=== PATIENT | male | born 1970 | race Caucasian/White ===

== ENCOUNTER 2024-05-20 11:14 | Outpatient (OUT) | payer OTHER, SELFPAY ==
[2024-05-20 11:32] LABS: Basophils Absolute Auto 0.1 10^3/uL (0.0-0.1); Basophils Percent Auto 1.3 % (0.2-2.0); Eosinophils Absolute Auto 0.2 10^3/uL (0.0-0.7); Eosinophils Percent Auto 2.1 % (0.9-7.0); Hematocrit 44.8 % (42.0-54.0); Immature Granulocytes Abs Auto 0.08 10^3/uL (0.00-0.03); Immature Granulocytes Pct Auto 0.7 % (0.0-0.5); Lymphocytes Absolute Auto 2.3 10^3/uL (1.2-3.8); Lymphocytes Percent Auto 20.9 % (20.5-60.0); Mean Corpuscular HGB Conc 33.5 g/dL (29.9-35.2); Mean Corpuscular Hemoglobin 31.4 pg (25.9-34.0); Mean Corpuscular Volume 93.9 fL (80.0-94.0); Mean Platelet Volume 8.8 fL (9.5-13.5); Monocytes Absolute Auto 0.9 10^3/uL (0.3-0.8); Monocytes Percent Auto 8.3 % (1.7-12.0); Neutrophils Absolute Auto 7.4 10^3/uL (1.4-6.5); Neutrophils Percent Auto 66.7 % (43.0-75.0); Platelet Count 387 10^3/uL (150-450); Red Blood Count 4.77 10^6/uL (4.70-6.10); Red Cell Distribution Width 13.3 % (11.0-15.0); White Blood Count 11.1 10^3/uL (4.0-11.0)
[2024-05-20 12:07] LABS: Alanine Aminotransferase 23 U/L (16-63); Albumin Globulin Ratio 0.9; Albumin Level 3.4 g/dL (3.4-5.0); Alkaline Phosphatase 66 U/L (46-116); Anion Gap 13.8; Aspartate Amino Transferase 18 U/L (15-37); BUN Creatinine Ratio 8.2; Bilirubin Total 0.3 mg/dL (0.2-1.0); Calcium 8.8 mg/dL (8.5-10.1); Carbon Dioxide 27.2 mmol/L (21.0-32.0); Chloride 105 mmol/L (98-107); Chol HDL Ratio 7.1; Cholesterol 219 mg/dL (<=200); Estimated GFR (African America >60 (>=60 mL/min/1.73m^2); Estimated GFR (Non-African Ame >60 (>=60 mL/min/1.73m^2); Glucose 113 mg/dL (74-106); HDL Cholesterol 31 mg/dL (40-60); Sodium 142 mmol/L (136-145); Total Protein 7.4 g/dL (6.4-8.2); Triglycerides 291 mg/dL (<=150); VLDL CHOLESTEROL 58.2 mg/dL
== END 2024-05-20 11:15 | disposition home or self-care (01) ==
LOC: LAB 11:19
PROVIDERS: PCP Nurse Practitioner; Visit Provider Nurse Practitioner
DX: I10 Essential (primary) hypertension (principal); Z13.6 Encounter for screening for cardiovascular disorders
CPT/HCPCS: 36415; 80053; 80061; 85025

== ENCOUNTER 2025-01-08 08:38 | Outpatient (OUT) | payer OTHER, SELFPAY ==
--- OUTSIDE RECORDS SUMMARY | 2024-08-25 04:45 | XMS_ITS ---
Author Organization Formerly [facility], [facility] vices Address [address] [place], [place] [id number] Care Team Providers Care Customer Engagement Specialist Name Role Phone Chel Hauser Primary Care Provider Oliva Call Unavailable [phone] REASON FOR VISIT HTN, Anxiety Social History Sex Assigned At : Social History Observation Description Sex Assigned At Male Encounters Encounter Location Date Provider Diagnosis Main [address] [place] [id number] 08/25/2024 Oliva Call Plan Of Treatment Next Appt Details Provider Name:Roderick Nance, 01/12/2025 09:45:00 AM, [address] [place], [place], [id number], Progress Notes * Pato SOTELO MDOB:[birth year] (54 yo M)Acc No.[id number]:08/25/2024 Patient: Christie Pato CUBA Provider: INESSA Sheikh :1970 A ge:53 Y S ex:Male Date:08/25/2024 Address:[address] [place], [place] [id number] Pcp:Chel Hauser Subjective: * Chief Complaints: * 1 . HTN, Anxiety. * Medical History: Objective: * Vitals: Assessment: Plan: * Treatment: * Billing Information: * Visit Code: * Procedure Codes: * Electronic signature of INESSA Weinberg on 01/08/2025 at 08:40 AM EDT Sign off status: Pending * Provider: INESSA Sheikh Date: 0 08/25/2024 Generated for Jabari slater/Reginald/Juan on: 0 01/08/2025 08:40 AM EDT
--- OUTSIDE RECORDS SUMMARY | 2024-12-09 06:00 | XMS_ITS ---
Author Organization [facility] vices Address [address] [place], [place] [id number] Care Team Providers Care Animal Trainer Name Role Phone Chel Hauser Primary Care Provider Amanda Humphries Unavailable [phone] REASON FOR VISIT Wellness (med refill) Social History Sex Assigned At : Social History Observation Description Sex Assigned At Male Encounters Encounter Location Date Provider Diagnosis [address], [facility] [place] [address] 12/09/2024 Amanda Humphries Plan Of Treatment Next Appt Details Provider Name:Roderick Nance, 01/12/2025 09:45:00 AM, [address], [id number], Progress Notes * Pato SOTELO MDOB:[birth year] (54 yo M)Acc No.[id number]:12/09/2024 Patient: Christie CUBAPato Provider: Faina Humphries MD :1970 A ge:54 Y S ex:Male Date:12/09/2024 Address:[address] [place] [id number] Pcp:Chel Hauser Subjective: * Chief Complaints: * 1 . Wellness (med refill). * Medical History: Objective: * Vitals: Assessment: Plan: * Treatment: * Billing Information: * Visit Code: * Procedure Codes: * Electronic signature of Grant Humphries MD on 01/08/2025 at 08:40 AM EDT Sign off status: Pending * Provider: Faina Humphries MD Date: 0 12/09/2024 Generated for Jabari slater/Reginald/Juan on: 0 01/08/2025 08:40 AM EDT
--- OUTSIDE RECORDS SUMMARY | 2025-01-08 08:40 | XMS_ITS | Clinical Summary ---
Author Organization [facility] Address [address] [place] [address] Care Team Providers Care Truck Engine Technician Name Role Phone Unavailable Primary Care Provider Unavailabl e Social History Tobacco Use Types Packs/Day Years Used Date Smoking Tobacco: Never Assessed Sex and Gender Information Value Date Recorded Sex Assigned at Not on file Legal Sex Male 7:01 PM EDT Gender Identity Not on file Sexual Orientation Not on file Last Filed Vital Signs Vital Sign Reading Time Taken Comments Blood Pressure 150/100 02/10/2019 12:00 PM EDT Pulse - - Temperature - - Respiratory Rate - - Oxygen Saturation - - Inhaled Oxygen Concentration - - Weight 80.9 kg (178 lb 6.4 oz) 02/10/2019 12:00 PM EDT Height 167.6 cm (5' 6 ) 02/10/2019 12:00 PM EDT Body Mass Index 28.79 02/10/2019 12:00 PM EDT Plan of Treatment Not on file
--- OUTSIDE RECORDS SUMMARY | 2025-01-08 08:40 | XMS_ITS | Patient Health Record ---
Author Organization Formerly [facility] vices Address [address] [place], [place] [address] Care Team Providers Care Neon Technician Name Role Phone Chel Hauser Primary Care Provider [phone] Oliva Call Unavailable Roderick Nance Unavailable [phone] Yandel Amanda Unavailable [phone] Allergies No Known Allergies Results Component Value Reference Range Notes LDL-CHOL DIRECT Reviewed date:12/17/2024 09:04:53 AM Interpretation: Performing Lab: Notes/Report: LDL-CHOL, DIRECT 157 <130 mg/dL ADULT LDL CHOLESTEROL CLASSIFICATION <100mg/dL Optimal 100-129mg/dL Near/Abo ve Optimal 130-159mg/dL Borderli ne High >160mg/dL High Risk Desirable range <100 mg/dL for patients with CHD or diabetes and <70 mg/dL for diabetic patients with known heart disease. LIPID PANEL WITH REFLEX TO D IRECT LDL Reviewed date:12/17/2024 09:04:53 AM Interpretation: Performing Lab: Notes/Report: CHOLESTEROL 223 100-199 mg/dL TRIGLYCERIDES 319 20-149 mg/dL VLDL-CHOL, CALCULATED 64 <30 mg/dL HDL-CHOL 26 >=40 mg/dL LDL-CHOL, CALCULATED 133 <130 mg/dL ADULT LDL CHOLESTEROL CLASSIFICATION <100mg/dL Optimal 100-129mg/dL Near/Abo ve Optimal 130-159mg/dL Borderli ne High >160mg/dL High Risk Desirable range <100 mg/dL for patients with CHD or diabetes and <70 mg/dL for diabetic patients with known heart disease. Direct LDL is recommended for patients with triglycerides >400. LDL/HDL 5.1 <5.0 LDL/HDL RATIO MALE FEMALE below average risk <2.3 <2.3 average risk <5.0 <4.1 moderate risk <7.1 <5.6 high risk >7.1 >5.6 CHOL/HDL 8.6 2.0-4.5 COMPREHENSIVE METABOLIC PANE L WITH GFR Reviewed date:12/17/2024 09:04:53 AM Interpretation: Performing Lab: Notes/Report: GLUCOSE 74 65-125 mg/dL BUN 14 6-20 mg/dL CALCIUM 9.5 8.6-10.5 mg/dL CREATININE, BLOOD 0.83 0.67-1.30 mg/dL eGFR (2020 CKD-EPI) 103 >59 mL/min/1.73m2 SODIUM 142 135-148 mmol/L POTASSIUM 4.3 3.5-5.4 mmol/L CHLORIDE 104 96-107 mmol/L CO2 27 18-32 mmol/L ANION GAP 11 7-16 mmol/L T. BILIRUBIN 0.2 <1.3 mg/dL ALK PHOS 77 39-118 U/L AST-SGOT 20 9-50 U/L ALT-SGPT 18 5-41 U/L T. PROTEIN 7.3 6.0-8.3 g/dL ALBUMIN 4.4 3.5-5.2 g/dL PSA, TOTAL, 3RD GENERATION Reviewed date:12/17/2024 09:04:53 AM Interpretation: Performing Lab: Notes/Report: PSA, TOTAL 0.591 0-4.00 ng/mL Method: Oumar Pete ECLIA PSA levels should not be interpreted as absolute evidence of disease, however it is widely accepted as an adjunctive test in the management of prostate cancer patients. Values obtained with different assay methods or kits can not be used interchangeably. A detectable PSA following radical prostatectomy is associated with eventual clinical disease recurrence in some, but not all patients. It may also be due to the presence of benign glands. The AUA defines biochemical recurrence as an initial PSA value >=0.2 ng/ml followed by a subsequent confirmatory PSA value >=0.2 ng/ml. HEMOGLOBIN A1C Reviewed date:12/17/2024 09:04:53 AM Interpretation: Performing Lab: Notes/Report: HEMOGLOBIN A1C 5.6 <5.7 % Prediabetes: 5.7% to 6.4% Diabetes: >6.4% Glycemic control for adults with diabetes: <7.0% Use with caution in patients with abnormal hemoglobin variants as the half-life of red blood cells and in vivo glycation rates are affected. AVERAGE WHOLE BLOOD GLUCOSE 114 <126 mg/dl UNLESS OTHERWISE INDICATED, ALL TESTING PERFORMED AT: [facility] [employer] [address] [place] [address] FRUIT OR NUT FARMWORKER: ZOE TORREZ M.D. CLIA NUMBER [id number] CAP ACCREDITATION AUID [id number] Complete Blood Count Auto Di ff Reviewed date:05/22/2024 04:33:30 PM Interpretation: Performing Lab: Notes/Report: [facility] , White Blood Count 11.1 4.0-11.0 10 3/uL Red Blood Count 4.77 4.70-6.10 10 6/uL Hemoglobin 15.0 14.0-18.0 g/dL Hematocrit 44.8 42.0-54.0 % Mean Corpuscular Volume 93.9 80.0-94.0 fL Mean Corpuscular Hemoglobin 31.4 25.9-34.0 pg Mean Corpuscular HGB Conc 33.5 29.9-35.2 g/dL Red Cell Distribution Width 13.3 11.0-15.0 % Platelet Count 387 150-450 10 3/uL Mean Platelet Volume 8.8 9.5-13.5 fL Neutrophils Percent Auto 66.7 43.0-75.0 % Lymphocytes Percent Auto 20.9 20.5-60.0 % Monocytes Percent Auto 8.3 1.7-12.0 % Eosinophils Percent Auto 2.1 0.9-7.0 % Basophils Percent Auto 1.3 0.2-2.0 % Immature Granulocytes Pct Auto 0.7 0.0-0.5 % Neutrophils Absolute Auto 7.4 1.4-6.5 10 3/uL Lymphocytes Absolute Auto 2.3 1.2-3.8 10 3/uL Monocytes Absolute Auto 0.9 0.3-0.8 10 3/uL Eosinophils Absolute Auto 0.2 0.0-0.7 10 3/uL Basophils Absolute Auto 0.1 0.0-0.1 10 3/uL Immature Granulocytes Abs Auto 0.08 0.00-0.03 10 3/uL Performing Lab: see note ML - [facility] Comprehensive Metabolic Pane l Reviewed date:05/20/2024 01:45:38 PM Interpretation: Performing Lab: Notes/Report: [facility] , Sodium 142 136-145 mmol/L Potassium 4.0 3.5-5.1 mmol/L Chloride 105 98-107 mmol/L Carbon Dioxide 27.2 21.0-32.0 mmol/L Anion Gap 13.8 Glucose 113 74-106 mg/dL Blood Urea Nitrogen 8.0 7.0-18.0 mg/dL Creatinine 0.97 0.70-1.30 mg/dL Estimated GFR ( July >60 >=60 mL/min/1.73m 2 Estimated GFR (Non- Purvi >60 >=60 mL/min/1.73m 2 BUN Creatinine Ratio 8.2 Calcium 8.8 8.5-10.1 mg/dL Bilirubin Total 0.3 0.2-1.0 mg/dL Aspartate Amino Transferase 18 15-37 U/L Alanine Aminotransferase 23 16-63 U/L Alkaline Phosphatase 66 46-116 U/L Total Protein 7.4 6.4-8.2 g/dL Albumin Level 3.4 3.4-5.0 g/dL Globulin 4.0 Albumin Globulin Ratio 0.9 Performing Lab: see note ML - [facility] Lipid Panel Reviewed date:05/20/2024 01:33:11 PM Interpretation: Performing Lab: Notes/Report: [facility] , Triglycerides 291 <=150 mg/dL Cholesterol 219 <=200 mg/dL HDL Cholesterol 31 40-60 mg/dL > or =60 mg/dl - LOW CARDIOVASCULAR RISK <40 mg/dl - HIGH CARDIOVASCULAR RISK LDL Cholesterol Calculated 130.0 <100 mg/dl OPTIMAL 100-129 mg/dl NEAR OR ABOVE OPTIMAL 130-159 mg/dl BORDERLINE HIGH 160-189 mg/dl HIGH >190 mg/dl VERY HIGH VLDL CHOLESTEROL 58.2 Chol HDL Ratio 7.1 3.3 - 4.4 LOW RISK 4.4 - 7.1 AVERAGE RISK 7.1 - 11.0 MODERATE RISK >11.0 HIGH RISK Performing Lab: see note ML - [facility] Reason For Referral No Information Medications Medication SIG (Take, Route, Frequency, Duration) Notes Start Date End Date Status Rosuvastatin Calcium 5 MG 1 tablet Orall y Once a day for 30 days 05/20/2024 Active Multivitamin - 1 tablet Orally Once a day Active Lisinopril-hydroCHLOROthi azide 20-25 MG TAKE 1 TABLET BY MOUTH EVERY DAY FOR 30 DAYS Oral for 30 Days Active Potassium Chloride ER 20 MEQ take 1 tablet by mouth once daily with food Orally Once a day for 90 days Active Lisinopril-hydroCHLOROthi azide 20-25 MG 1 tablet Orally Once a day for 30 days Not-Taking Sertraline HCl 50 MG 1 tablet Orally Onc e a day for 90 days Active Immunizations Vaccine Route Administration Date Status Comme nts COVID-19 (Pfizer)-Private Unknown 02/16/2021 Administer ed COVID-19 (Pfizer)-Private Unknown 03/09/2021 Administer ed Social History Tobacco Use: Social History Observation Description Date Details (start date - stop date) Current Smoker 05/08/1985 - NA Sex Assigned At : Social History Observation Description Sex Assigned At Male Household Question Answer Notes Number of adults in household: 2 Tobacco Use/Smoking Question Answer Notes Tobacco use: light tobacco smoker patient entered data When did you start smoking? 12/16/1986 p atient entered data CAGE-AID Questionnaire (2018 Edition) Question Answer Notes Have you ever felt that you ought to cut down on your drinking or drug use? No patient entered data Have people annoyed you by c riticizing your drinking or drug use? No patient entered data Have you ever felt bad or gu ilty about your drinking or drug use? No patient entered data Have you ever had a drink or used drugs first thing in the morning to steady your nerves or to get rid of a hangover? No patient entered data CAGE-AID Score 0 Interpretation Negative PRAPARE Question Answer Notes What is your current housing situation? I have housing patient entered data Are you worried about losing your housing? No patient entered data What is the highest level of school that you have finished? 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 Check all that apply I do not have problems meeting my needs Has lack of transportation k ept you from medical appointments, meetings, work or from getting things needed for daily living? No How often do you see or talk to people that you care about and feel close to? (For example: talking to friends on the phone, visiting friends or family, going to voodoo or club meetings) I choose not to answer this question patient entered data How stressed are you? Stress is when someone feels tense, nervous, anxious, or can't sleep at night because their mind is troubled A little bit patient entered data In the past year have you sp ent more than 2 nights in a row in a custodial, chcf, skilled nursing center, or juvenile correctional facility? No patient entered rut a Are you a refugee? No patient en tered data What country are you from? [place] de[place] cai entered data Do you feel physically and emotionally safe where you currently live? Yes patient entered data In the past year, have you b een afraid of your partner or ex-partner? No patient entered data PRAPARE Score: 2 Tobacco Control (Standard) Question Answer Notes Tobacco use: Current smoker When did you start smoking? 05/08/1985 How many cigarettes a day do you smoke? 6-10 How soon after you wake up do you smoke your fir st cigarette? After 60 minutes Are you interested in quitting? Not ready to mario t Problems Problem Type SNOMED Code ICD Code Onset Dates Problem Status W/U Status Risk Notes Problem 19954079 Essential (primary) hypertension (I10) Active confirmed Problem Tobacco user (384118084) Cigarette nicotine dependence without complication (F17.210) Active confirmed Problem Hyperlipidemia (31101650) Hyperlipidemia (E78.5) Active confirmed Problem Body mass index 30+ - obesity (872573735) BMI 30.0-30.9,adult (Z68.30) Active confirmed Problem 241463866 Incidental lung nodule, > 3mm and < 8mm (R91.1) Active confirmed Chest CT 07/12/23 Lung RADS-2 Benign appearance or behavior Vital Signs Heart Rate 78 /min 12/16/2024 denies pain. Id Raquel munoz 12/16/2024 09:51:10 AM EDT > Raquel Chauhan 12/16/2024 10:04:39 AM EDT > Temperature 98.8 degrees Fahrenheit 12/16/2024 cierra es pain. Raquel Chauhan 12/16/2024 09:51:10 AM EDT > Raquel Chauhan 12/16/2024 10:04:39 AM EDT > Respiratory Rate 16 /min 12/16/2024 denies pain . Raquel Chauhan 12/16/2024 09:51:10 AM EDT > Raquel Chauhan 12/16/2024 10:04:39 AM EDT > Blood pressure diastolic 99 mm Hg 12/16/2024 den ies pain. Raquel Chauhan 12/16/2024 09:51:10 AM EDT > Raquel Chauhan 12/16/2024 10:04:39 AM EDT > Oximetry 98 % 12/16/2024 denies pain. Id Raquel munoz 12/16/2024 09:51:10 AM EDT > Raquel Chauhan 12/16/2024 10:04:39 AM EDT > Weight-kg 86.27 kg 12/16/2024 denies pain. Id Raquel munoz 12/16/2024 09:51:10 AM EDT > Raquel Chauhan 12/16/2024 10:04:39 AM EDT > Height 58 in 12/16/2024 denies pain. Id Raquel munoz 12/16/2024 09:51:10 AM EDT > Raquel Chauhan 12/16/2024 10:04:39 AM EDT > Blood pressure systolic 162 mm Hg 12/16/2024 cierra es pain. Raquel Chauhan 12/16/2024 09:51:10 AM EDT > Raquel Chauhan 12/16/2024 10:04:39 AM EDT > Weight 190.2 lbs 12/16/2024 denies pain. Id Raquel munoz 12/16/2024 09:51:10 AM EDT > Raquel Chauhan 12/16/2024 10:04:39 AM EDT > BMI 39.75 kg/m2 12/16/2024 denies pain. Raquel Jasso 12/16/2024 09:51:10 AM EDT > Tien Raquel 12/16/2024 10:04:39 AM EDT > Encounters Encounter Location Date Provider Diagnosis [address] [id number] 04/28/2024 Chel Hauser Essential (primary ) hypertension I10 ; Screening for cardiovascular condition Z13.6 and Medication refill Z76.0 [address] [place], [place] [id number] 12/16/2024 Roderick Nance Encounter for well ness examination Z00.00 ; Screening for diabetes mellitus Z13.1 ; Encounter for screening for HIV Z11.4 ; Screening for colon cancer Z12.11 ; Screening for prostate cancer Z12.5 ; Encounter for screening for cardiovascular disorders Z13.6 ; Dietary counseling Z71.3 ; Exercise counseling Z71.82 ; Cigarette nicotine dependence without complication F17.210 ; Medication refill Z76.0 ; Hyperlipidemia E78.5 and BMI 30.0-30.9,adult Z68.30 [address] [place], [place] [id number] 04/11/2024 Chel Hauser [address] [place], [place] [id number] 05/15/2024 Chel Hauser [place] [address] [place] [address] 05/20/2024 Chel Hauser Hyperlipidemia E78.5 and Elevated glucose level R73.09 [address] [place], [place] [phone] 12/05/2024 Chel Hauser Essential (primary ) hypertension I10 Assessments Encounter Date Diagnosis (ICD Code) Assessment Notes Treatment Notes Treatment Clinical Notes Section Notes 04/28/2024 Essential (primary) hypertension (ICD-10 - I10) stable at this time continue same regimen 05/20/2024 Elevated glucose level (ICD-10 - R73.09) 05/20/2024 Hyperlipidemia (ICD-10 - E78.5) 12/05/2024 Essential (primary) hypertension (ICD-10 - I10) 12/16/2024 Encounter for wellness examination (ICD-10 - Z00.00) Pt is here for wellness today. Overall health is okay. I advised to get baseline tests and pt is agreeable for that. I advised regular exercise and eating a balanced diet with focus on eating less fried and fatty foods and eating more fresh fruits and vegetable in an attempt to achieve and maintain a healthy BMI and PVU Pt will see us back in 2 week to discuss results. 12/16/2024 Screening for diabetes mellitus (ICD-10 - Z13.1) 04/28/2024 Screening for cardiovascular condition (ICD-10 - Z13.6) 04/28/2024 Medication refill (ICD-10 - Z76.0) 12/16/2024 Encounter for screening for HIV (ICD-10 - Z11.4) 12/16/2024 Screening for colon cancer (ICD-10 - Z12.11) 12/16/2024 Screening for prostate cancer (ICD-10 - Z12.5) 12/16/2024 Encounter for screening for cardiovascular disorders (ICD-10 - Z13.6) 12/16/2024 Dietary counseling (ICD-10 - Z71.3) 12/16/2024 Exercise counseling (ICD-10 - Z71.82) 12/16/2024 Cigarette nicotine dependence without complication (ICD-10 - F17.210) Patient provided with [phone] W phone line. 12/16/2024 Medication refill (ICD-10 - Z76.0) 12/16/2024 BMI 30.0-30.9,adult (ICD-10 - Z68.30) 12/16/2024 Hyperlipidemia (ICD-10 - E78.5) Plan Of Treatment Pending Test Test Name Order Date CT LOW DOSE LUNG SCREENING 12/16/2024 Next Appt Details Provider Name:Roderick Jimenezradha, 01/12/2025 09:45:00 AM, [address] [place], [phone], Insurance Providers Payer Name Payer Address Payer Phone Subscriber Number Group Number Insured Name Patient Relationship to Insured Coverage Start Date Coverage End Date [facility] [address] [place] [address] [place], [place] [phone] [id number] Pato Sotelo Self - patient is the insured 2 Medical (General) History Medical History History ICD Code Colitis, infectious A09 Surgical History Surgery Date(Month/Year) Colonoscopy 2005 Colonoscopy 11/2022
--- OUTSIDE RECORDS SUMMARY | 2025-01-08 08:40 | XMS_ITS | Clinical Summary ---
Author Organization [facility] Address [address] [place] [address] Care Team Providers Care Reconsignment Clerk Name Role Phone Unavailable Primary Care Provider Unavailabl e Medications potassium chloride 20 mEq TbER Take by mouth. Active lisinopril-hydro CHLOROthiazide (ZESTORETIC) 20-25 mg per tablet Take 1 tablet by mouth every afternoon. 12/11/2022 Active sertraline (ZOLOFT) 50 mg tablet Take 1 tablet by mouth every afternoon. 01/15/2023 Active Active Problems No known active problems Social History Tobacco Use Types Packs/Day Years Used Date Smoking Tobacco: Every Day Cigarettes Smokeless Tobacco: Former Tobacco Cessation:Ready to Q uit: Not Asked; Counseling Given: Not Answered Area Deprivation Index Answer Date Dorian rded National Score (1-100), lower number is lower ri sk 53 02/21/2023 State Score (1-10), lower number is lower risk 3 02/21/2023 Data from: https://www.neighborhoodatlas.medicine.[facility].edu/. Last address used for calculation [address] [place] [address] 02/21/2023 Sex and Gender Information Value Date Recorded Sex Assigned at Not on file Legal Sex Male 2:46 PM EDT Gender Identity Not on file Sexual Orientation Not on file Last Filed Vital Signs Vital Sign Reading Time Taken Comments Blood Pressure 140/89 02/21/2023 12:51 PM EDT patient states blood pressure may run high Pulse 70 02/21/2023 12:51 PM EDT Temperature 36.8 C (98.2 F) 02/21/2023 12:51 PM EDT Respiratory Rate - - Oxygen Saturation - - Inhaled Oxygen Concentration - - Weight 81.6 kg (180 lb) 02/21/2023 12:5 1 PM EDT Height 170.2 cm (5' 7 ) 02/21/2023 12:5 1 PM EDT Body Mass Index 28.19 02/21/2023 12:51 PM EDT Plan of Treatment Health Maintenance Due Date Last Done Comments Anxiety Screening 12/09/1987 Depression Screening 12/09/1987 HIV Screening 12/09/1987 Hepatitis C Screening 12/09/1987 DTaP,Tdap,Td Vaccine (1 - Tdap) 1988 Hepatitis B Vaccine (1 of 3 - 19+ 3-dose series) 1988 Pneumococcal Vaccine: 50+ (1 of 2 - PCV) [address] Colonography 2014 Cologuard (FIT-DNA) 2014 Colonoscopy 2014 Colorectal Cancer Screening 2014 Diabetes Screening 2014 Fecal Occult Blood 2014 Prostate Cancer Screening Discussion 2014 Sigmoidoscopy 2014 Shingrix Vaccine (1 of 2) 12/09/2019 Covid-19 Vaccine (3 season) 03/30/202405/2021, 02/16/2021 Influenza Vaccine (Season Ended) 2025 Insurance
--- NOTE | 2025-01-08 08:42 | CT_ITS ---
The [address] [address] Patient Name: ADT GREGORIO MRN: [id number] date: 1970 Sex: M Assigned Patient Location: CT Current Patient Location: CT Accession/Order Number: [id number] Exam Date: 01/08/2025 09:37 Report Date: 01/08/2025 09:48 At the request of: RICHARD PRCIE Procedure: CT lung screening low-dose LOW-DOSE SCREENING CHEST CT WITHOUT CONTRAST COMPARISON: 07/12/2022 CLINICAL DATA: Current smoker for approximate 37 years. Cough. Spiral axial unenhanced low-dose images were obtained through the chest. Images were reviewed using both narrow and wide window settings. This CT exam was performed using one or more following dose reduction techniques: Automated exposure control, adjustment of the mA and/or kV according to patient size, or use of iterative reconstruction technique. The heart is within normal limits for size. No pericardial effusion is present. No aortic aneurysm is seen. There is minimal atherosclerotic plaque at the aortic arch and proximal subclavian arteries. There are a few tiny nonpathologic mediastinal lymph nodes. There are tiny endplate spurs. Minor apical scarring is visualized. There is also atelectasis and/or scarring at the lower lungs. No additional consolidation, pleural effusion or pneumothorax is seen. There are a few tiny stable nodular densities on the left measuring up to 5 mm. There is also a tiny nodule within the right upper lobe abutting the minor fissure that is unchanged. No new nodularity is seen. Limited imaging through the upper abdomen shows no contributory findings. CT/CT lung screening low-dose IMPRESSION: SCARRING AND/OR ATELECTASIS. TINY STABLE PULMONARY NODULES. NO ACUTE FINDINGS. Lung RADS category 2 - benign Twelve-month low-dose CT follow-up suggested. Impression dictated by: Shaina Eller M.D. 01/08/2025 9:48 AM Dictation Location: [place] [address] Electronically authenticated by: [id number] Y Date: 01/08/2025 09:48
--- OUTSIDE RECORDS SUMMARY | 2025-01-08 08:47 | XMS_ITS | CCD ---
Author Organization [facility] CliniSyms Care Team Providers Care Silver Designer Name Role Phone SHAMMO, KINGS Admitting Unavailable SHAMMO, KINGS Primary Care Unavailable SHAMMO, KINGS Attending Unavailable SHAMMO, KINGS Attending Unavailable SHAMMO, KINGS Admitting Unavailable SHAMMO, KINGS Consulting Unavailable SHAMMO, KINGS Attending Unavailable SHAMMO, KINGS Admitting Unavailable MOULTON, SHERRON Consulting Unavailable SHAMMO, KINGS Consulting Unavailable SHAMMO, KINGS Attending Unavailable SHAMMO, KINGS Admitting Unavailable SHAMMO, KINGS Primary Care Unavailable SHAMMO, KINGS Consulting Unavailable SHAMMO, KINGS Attending Unavailable SHAMMO, KINGS Admitting Unavailable DR ERIKA ECHEVERRIA Consulting Unavailable SHAMMO, KINGS Consulting Unavailable SALAM, Vargas Attending Unavailable Mitch Rubio Unavailable MD Mitch Rubio Attending Provider Shamyani, INSURANCE PROCESSING CLERK- Kings T Primary Care Provider Mitch Rubio Admitting Unavailable Mitch Rubio Attending Unavailable Shammo, Kings T Primary Care Unavailable Unavailable Primary Care Provider UnavailMICH De La Fuente Referring Unavailable MICH JUARES Attending Unavailable Medications Current Medications Medication Drug Class(es) Dates Sig (Normalized) Sig (Original) hydroCHLOROthiazide 25 mg oral tablet (1 source) Thiazide Diuretic take 1 tablet by mouth every twenty-four hours hydroCHLOROthiazide 25 MG 1 tablet in the morning Orally Once a day Active lisinopril 10 mg oral tablet (1 source) Angiotensin Converting Enzyme Inhibitor take 1 tablet by mouth every twenty-four hours Lisinopril 10 MG 1 tablet Orally Once a day Active Completed/Discontinued Medications Medication Drug Class(es) Dates Sig (Normalized) Sig (Original) hydroCHLOROthiazide 25 mg / lisinopril 20 mg oral tablet (1 source) Thiazide Diuretic, Angiotensin Converting Enzyme Inhibitor Start: 12-11-2022 take 1 tablet by mouth once lisinopril-hydr oCHLOROthiazide (ZESTORETIC) 20-25 mg per tablet Take 1 tablet by mouth every afternoon. 0 12/11/2022 Active Comment on above: Take 1 tablet by ramesh th every afternoon. potassium chloride 20 meq extended release oral tablet (2 sources) potassium chloride 20 mEq TbER Take by mouth. 0 Active Potassium Chlori de CR 20 MEQ as directed Orally Active Comment on above: Take by mouth. sertraline 50 mg oral tablet (1 source) Serotonin Reuptake Inhibitor Start: 01-15-2023 take 1 tablet by mouth once sertraline (ZOLOFT) 50 mg tablet Take 1 tablet by mouth every afternoon. 0 01/15/2023 Active Comment on above: Take 1 tablet by ramesh th every afternoon. Problems Problem Classification Problem Date Documented Da te Episodic/Chronic Abdominal pain (5 sources) Unspecified abdominal pain; Translations: [Abdominal pain] Onset: 2 Episodic Hemorrhoids (1 source) Internal hemorrhoids; Translations: [Other hemorrhoids] 02-21-2023 Episodic Immunizations and screening for infectious disease (5 sources) Encounter for screening for human immunodeficiency virus [HIV]; Translations: [Encounter for screening for other viral diseases] Onset: 2 Episodic Other gastrointestinal disorders (1 source) Diarrhea, unspecified; Translations: [DIARRHEA UNSPECIFIED] Onset: 3 Episodic Other gastrointestinal disorders (1 source) Diarrhea; Translations: [Diarrhea, unspecified] Onset: 3 Episodic Other screening for suspected conditions (not mental disorders or infectious disease) (3 sources) Encounter for screening for malignant neoplasm of respiratory organs; Translations: [Encounter for screening for cardiovascular disorders] Onset: 2 Episodic Substance-related disorders (4 sources) Nicotine dependence, cigarettes, with other nicotine-induced disorders; Translations: [NICOTINE DEPEND CIG W/OTH INDUC D/O] Onset: 2 Chronic Unclassified (1 source) Encounter for screening for malignant neoplasm of colon; Translations: [Encounter for screening for malignant neoplasm of colon] Onset: 3 Results Test Name Value Interpretation Reference Range Facility OVon 02-21-2023 CNOV Office Visit ([facility]) DAT SOTELO ([id number]) 1970 M Date Time Provider Department 02/21/23 1:00 PM MICH JUARES [facility] During your visit today, we recorded the following information about you: Temperature Pulse Blood pressure Weight 98.2 degrees 70/minute 140/89 81.6 kg Height 1.702 m Mira Hewitt Ma 02/21/2023 12:54 PM Signed . Mira Hewitt Ma 02/21/2023 12:56 PM Signed What is the reason for your visit today? consult Who is your referring physician? Dr. Juares Are you having poor oral intake? NO Have you had unintentional weight loss of 15 lbs/7 Kg in the last 3-6 months? NO Bowels: regular Wound: clean AND dry Temperature: No Drains: No Mich Juares MD 02/21/2023 1:26 PM Signed COLORECTAL SURGERY February 21, 2023 Dat Sotelo 52 year old This consult was requested by Dr. Mitch Rubio and my final recommendations will be communicated to the requesting health care provider by way of the shared medical record for internal providers or letter via the [employer] for external providers. Chief Complaint: rectal prolapse, hemorrhoids History of Present Illness: Dat Sotelo is a 52 year old male presents today for evaluation of rectal prolapse, hemorrhoids. Colonoscopy 12/27/22 - Dr. Rubio - Transverse colon: 8 mm sessile polyp removed with cold snare - Internal hemorrhoids Scan on 01/01/2023 3:26 PM by Callum Chaves: [facility] Colonosocopy and Pathology Report Pathology Colon, transverse, polyp, polypectomy: - Tubular adenoma Scan on 02/20/2023 2:50 PM by Keya Desai: PATHOLOGY REPORT 52-year-old male with the above-stated history. He reports he has been having prolapsing internal hemorrhoids for some time and it seems that they come out and bleed with bowel movements. His bowel moods are typically soft but can be irregular No past medical history on file. No past surgical history on file. No current outpatient medications on file. No current facility-administere d medications for this visit. ALLERGIES Not on File No family history on file. Physical Exam: BP 140/89 Pulse 70 Temp 36.8 ?C (98.2 ?F) (Temporal) Ht 170.2 cm (5' 7 ) Wt 81.6 kg (180 lb) BMI 28.19 kg/m? General Appearance: Well appearing, alert, in no acute distress, well-hydrated, well nourished. Anorectal: External exam reveals no lesions. Digital rectal exam reveals no gross blood or masses Safety Counselor present: Yes, Zainab Z Anoscopy: The patient was placed in chest-knee position. After digital exam with a lubricated finger, the scope was easily inserted. Severely enlarge right posterior, right anterior, and left lateral internal hemorrhoids were noted. Otherwise normal mucosa was noted. Anoscopy completed. Preoperative diagnosis: First to second degree hemorrhoids. Procedure: Anoscopy, rubber band ligation of hemorrhoids. Postoperative diagnosis: Same Indications: This 52 year old was found to have internal hemorrhoids that were not suitable for conservative management. Description of procedure: The patient was placed in the chest-knee position. A time out was completed. A digital rectal exam was performed. A lubricated anoscope was inserted into the anal canal. The three hemorrhoidal pedicles were identified and the redundant rectal mucosa just above the largest internal hemorrhoids (left lateral/right anterior/right posterior) suctioned. Using the applicator, 2 rubber bands were placed around the tissue and were noted to be in good position. The mucosa was inspected for bleeding prior to withdrawal of the anoscope. The patient tolerated the procedure well with no excessive pain. Assessment Assessment and Plan: Dat Sotelo is a 52 year old male with severely enlarged internal hemorrhoids status post rubber band ligation of left lateral, right anterior, and right posterior internal hemorrhoids. He tolerated procedure well. We talked about psyllium fiber supplementation as well as increasing water intake. We talked a good stool hygiene. His hemorrhoids are quite large and we will see if were able to make a dent in his symptoms with the banding. If things have not improved he will return to see me in 1 to 2 months. At that time we can discuss repeat banding versus more likely THD Medical Decision Making: Data Reviewed: Tests AND Documents Reviewed/ordered: Review of prior notes from Dr. Rubio Review of Pathology Review of Procedures / Tests: Colonoscopy Risk of morbidity, mortality and/or complications of treatment plan: moderate Mich Juares MD Colorectal Surgery Referring Provider: MICH JUARES [[id number]] Allergies As of Date: 02/21/2023 (Not on File) Date Reviewed: 02/21/2023 Reviewed by: Mich Juares MD - Fully Assessed Reason for Visit: Consult [173] New Patient [172] Primary Visit Diagnosis:Hemorrhoid s, internal (more content not included)... Normal [facility] 12-27-2022 L Specimen: [id number] Received: 12/27/22 Status: CASSI Huitron Num: [id number] Spec Type: Surgical Subm Dr: Mitch Rubio MD Tissues: A Colon Biopsy (TRANSVERSE POLYP) Procedures: SHAQUILLE/Ry, Luis/Florian L4 Age/ Patient Sex Location Account Attending Physician [id number] Rubio MD SPEC NUM: [id number] RECD: 12/27/22 STATUS: CASSI HUITRON NUM: [id number] JAMES: 12/27/22 DR: Mitch Rubio MD ENTERED: 12/27/[address] [facility] [address]: LEESA TYPE: Surgical DEPT: S ORDERED: HE/2, Gross/Micro L4 ORDERED: HE/2, Gross/Micro L4 Pathological Diagnosis Colon, transverse, polyp, polypectomy: - Tubular adenoma. Clinical Information Screen Gross Description Received in formalin labeled with the patient's name, number and transverse polyp is one fragment of soft maki tissue measuring 0.8 x 0.5 x 0.3 cm admixed with apparent fecal material. Entirely submitted in one cassette labeled A1. Microscopic Description Two H E slides reviewed. The microscopic examination confirms the diagnosis. CPT Codes 31944 Specimen: [id number] Received: 12/27/22 Status: CASSI Huitron Num: [id number] Spec Type: Surgical Subm Dr: Mitch Rubio MD Tissues: A Colon Biopsy (TRANSVERSE POLYP) Procedures: HE/2, Gross/Micro L4 Patient: Brad Sotelo [id number] (Continued) Signed (signature on file) Esdras Roldan MD 12/28/22 1302 [facility] HIV 1 AND 2 WITH REFLEXon HIV Screen 4th Generation wRfx Non-Reactive Normal Non Reactive [facility] Comment on above: Result Comment: HIV Negative HIV-1/HIV-2 antibodies and HIV-1 p24 antigen were NOT detected. There is no laboratory evidence of HIV infection. Performed By: #### H IV12 #### [facility] [address] [address] [address] LUNG CANCER SCREENINGon 1 09-13-2021 CT LUNG CANCER SCREENING EXAMINATION: CT LUNG CANCER SCREENING HISTORY: Tobacco dependence caused by cigarettes COMPARISON: No relevant comparison available. TECHNIQUE: Axial, Coronal, and Sagittal images were created without the administration of IV contrast material. Dose reduction techniques were achieved by using automated exposure control and/or adjustment of mA and/or kV according to patient size and/or use of iterative reconstruction technique. FINDINGS: LUNGS: Mild emphysematous changes. 5 mm nodule within anterior basilar segment of left lower lobe. Scarring within posterior right lung base. Mild emphysematous changes. PLEURA: No mass, effusion, or pneumothorax. VASCULATURE: No abnormality. SOCORRO: No mass or pathologic adenopathy. MEDIASTINUM: No mass or pathologic adenopathy. CARDIAC: No enlargement, pericardial thickening, or significant calcification. AORTA: No aneurysm or dissection. CHEST WALL: No mass or axillary adenopathy BONES: No bone lesion or fracture. LIMITED ABDOMEN: No suspicious findings. Limited images of the upper abdomen. OTHER: Negative. IMPRESSION: 1. Lung-RADS 2- Benign Appearance or Behavior. Nodules with a very low likelihood of becoming a clinically active cancer due to size or lack of growth. Follow-up CT Chest in 1 year. 2. Mild emphysematous changes. Electronically authenticated by: ERIKA ECHEVERRIA Date: 2022-07-12 22:34 Normal [facility] HEPATITIS C AB CASCADE TO QU ANT PCR GENOon 07-12-2022 HCV AB <0.1 Normal 0.0-0.9 [facility] Comment on above: Performed By: #### H EPCASC #### [facility] [address] [place] [address] Dr. Juan Ward Interpretation: Comment Normal [facility] Comment on above: Result Comment: Nega tive Not infected with HCV, unless recent infection is suspected or other evidence exists to indicate HCV infection. Performed By: #### H EPCASC #### [facility] [address] [address] [address] Juan Ward GLYCOHEMOGLOBIN A1Con 2021 ADA RECOMMENDATION SEE BELOW Normal [facility] Comment on above: Result Comment: ADA RECOMMENDED LIMIT 4.0 - 6.0 ADA THERAPEUTIC TARGET < 7.0 ACTION SUGGESTED > 7.0 Performed By: #### L IPID, CMP #### [facility] [address] [address] [address] Juan Ward Glucose [Mass/Vol] 108 mg/dL Normal [facility] Comment on above: Performed By: #### L IPID, CMP #### [facility] [address] [address] [address] Juan Ward HbA1c (Bld) [Mass fraction] 5.4 % Normal 4.5-6.2 [facility] Comment on above: Performed By: #### L IPID, CMP #### [facility] [address] [place] [address] Dr. Juan Ward HEMOGRAM AND PLATELon 2021 Hematocrit (Bld) [Volume fraction] 44.8 % Normal 42.0-54.0 [facility] Comment on above: Performed By: #### H H #### [facility] [address] [place] [address] Dr. Juan Ward Hemoglobin (Bld) [Mass/Vol] 15.0 g/dL Normal 14.0-18.0 [facility] Comment on above: Performed By: #### H H #### [facility] [address] [place] [address] Dr. Juan Ward MCH (RBC) [Entitic mass] 30.4 pg Normal 25.9-34.0 [facility] Comment on above: Performed By: #### H H #### [facility] [address] [place] [address] Dr. Juan Ward MCHC (RBC) [Mass/Vol] 33.5 g/dL Normal 29.9-35.2 [facility] Comment on above: Performed By: #### H H #### [facility] [address] [place] [address] Dr. Juan Ward MCV (RBC) [Entitic vol] 90.7 fL Normal 80.0-94.0 [facility] Comment on above: Performed By: #### H H #### [facility] [address] [place] [address] Dr. Juan Ward PLT 388 103/ul Normal 150-450 [facility] Comment on above: Performed By: #### H H #### [facility] [address] [place] [address] Dr. Juan Ward RBC 4.94 106/ul Normal 4.70-6.10 [facility] Comment on above: Performed By: #### H H #### [facility] [address] [place] [address] Dr. Juan Ward WBC 9.9 103/ul Normal 4.0-11.0 [facility] Comment on above: Performed By: #### H H #### [facility] [address] [address] [address] Juan Ward LIPID PROFILEon 07-11-2022 CHOL-HDL RATIO NORM SEE BELOW Normal [facility] Comment on above: Result Comment: 3.3 - 4.4 LOW RISK 4.4 - 7.1 AVERAGE RISK 7.1 - 11.0 MODERATE RISK >11.0 HIGH RISK Performed By: #### L IPID, CMP #### [facility] [address] [address] [address] Juan Ward Cholesterol [Mass/Vol] 185 mg/dL Normal <=200 [facility] Comment on above: Performed By: #### L IPID, CMP #### [facility] [address] [address] [address] Juan Ward Cholesterol in HDL [Mass/Vol] 33 mg/dL Critically low 40-60 [facility] Comment on above: Performed By: #### L IPID, CMP #### [facility] [address] [address] [address] Juan Ward Cholesterol in LDL [Mass/Vol] 121.6 mg/dL Normal [facility] Comment on above: Performed By: #### L IPID, CMP #### [facility] [address] [address] [address] Juan Ward Cholesterol.total/Cho lesterol in HDL [Mass ratio] 5.6 {ratio} Normal [facility] Comment on above: Performed By: #### L IPID, CMP #### [facility] [address] [address] [address] Juan Ward HDL NORMAL > or = 60 mg/dl - LOW CARDIOVASCULAR RISK <40 mg/dl - HIGH CARDIOVASCULAR RISK Normal [facility] Comment on above: Performed By: #### L IPID, CMP #### [facility] [address] [address] [address] Juan Ward LDL CALC NORMAL SEE BELOW Normal [facility] Comment on above: Result Comment: <100 mg/dl OPTIMAL 100 - 129 mg/dl NEAR OR ABOVE OPTIMAL 130 - 159 mg/dl BORDERLINE HIGH 160 - 189 mg/dl HIGH >190 mg/dl VERY HIGH Performed By: #### L IPID, CMP #### [facility] [address] [place] [address] Dr. Juan Ward Triglyceride [Mass/Vol] 152 mg/dL Critically high <=150 [facility] Comment on above: Performed By: #### L IPID, CMP #### [facility] [address] [place] [address] Dr. Juan Ward VLDL CALC 30.4 mg/dL Normal [facility] Comment on above: Performed By: #### L IPID, CMP #### [facility] [address] [place] [address] Dr. Juan Ward PROF 14(COMP METB)on 022 Albumin [Mass/Vol] 3.6 g/dL Normal 3.4-5.0 [facility] Comment on above: Performed By: #### L IPID, CMP #### [facility] [address] [place] [address] Dr. Juan Ward Albumin/Globulin [Mass ratio] 0.9 {ratio} Normal [facility] Comment on above: Performed By: #### L IPID, CMP #### [facility] [address] [place] [address] Dr. Juan Ward ALP [Catalytic activity/Vol] 70 U/L Normal 46-116 [facility] Comment on above: Performed By: #### L IPID, CMP #### [facility] [address] [place] [address] Dr. Juan Ward ALT [Catalytic activity/Vol] 23 U/L Normal 16-63 [facility] Comment on above: Performed By: #### L IPID, CMP #### [facility] [address] [place] [address] Dr. Juan Ward Anion gap [Moles/Vol] 11.3 mmol/L Normal [facility] Comment on above: Performed By: #### L IPID, CMP #### [facility] [address] [address] [address] Juan Ward AST [Catalytic activity/Vol] 19 U/L Normal 15-37 [facility] Comment on above: Performed By: #### L IPID, CMP #### [facility] [address] [place] [address] Dr. Juan Ward Bilirubin [Mass/Vol] 0.5 mg/dL Normal 0.2-1.0 [facility] Comment on above: Performed By: #### L IPID, CMP #### [facility] [address] [place] [address] Dr. Juan Ward Calcium [Mass/Vol] 8.9 mg/dL Normal 8.5-10.1 [facility] Comment on above: Performed By: #### L IPID, CMP #### [facility] [address] [place] [address] Dr. Juan Ward Chloride [Moles/Vol] 105 mmol/L Normal 98-107 [facility] Comment on above: Performed By: #### L IPID, CMP #### [facility] [address] [place] [address] Dr. Juan Ward CO2 [Moles/Vol] 30.0 mmol/L Normal 21.0-32.0 [facility] Comment on above: Performed By: #### L IPID, CMP #### [facility] [address] [place] [address] Dr. Juan Ward Creatinine [Mass/Vol] 0.80 mg/dL Normal 0.70-1.30 [facility] Comment on above: Performed By: #### L IPID, CMP #### [facility] [address] [place] [address] Dr. Juan Ward EGFR-AF IVORIAN >60 Normal >=60 [facility] Comment on above: Performed By: #### L IPID, CMP #### [facility] [address] [place] [address] Dr. Juan Ward EGFR-NON AF IVORIAN >60 Normal >=60 [facility] Comment on above: Performed By: #### L IPID, CMP #### [facility] [address] [address] [address] Juan Ward Globulin (S) [Mass/Vol] 3.8 g/dL Normal [facility] Comment on above: Performed By: #### L IPID, CMP #### [facility] [address] [place] [address] Dr. Juan Ward Glucose [Mass/Vol] 99 mg/dL Normal 74-106 [facility] Comment on above: Performed By: #### L IPID, CMP #### [facility] [address] [place] [address] Dr. Juan Ward Potassium [Moles/Vol] 4.3 mmol/L Normal 3.5-5.1 [facility] Comment on above: Performed By: #### L IPID, CMP #### [facility] [address] [place] [address] Dr. Juan Ward Protein [Mass/Vol] 7.4 g/dL Normal 6.4-8.2 [facility] Comment on above: Performed By: #### L IPID, CMP #### [facility] [address] [place] [address] Dr. Juan Ward Sodium [Moles/Vol] 142 mmol/L Normal 136-145 [facility] Comment on above: Performed By: #### L IPID, CMP #### [facility] [address] [place] [address] Dr. Juan Ward Urea nitrogen [Mass/Vol] 9.0 mg/dL Normal 7.0-18.0 [facility] Comment on above: Performed By: #### L IPID, CMP #### [facility] [address] [place] [address] Dr. Juan Ward Urea nitrogen/Creatinine [Mass ratio] 11.2 mg/mg Normal [facility] Comment on above: Performed By: #### L IPID, CMP #### [facility] [address] [place] [address] Dr. Juan Ward Physician Referralon 022 Physician Referral [phone] [id number] #[id number] Normal [facility] AMYLASEon 06-12-2022 Amylase [Catalytic activity/Vol] 39 U/L Normal 25-115 [facility] Comment on above: Performed By: #### A MY, LIPA #### [facility] [address] [place] [address] Dr. Juan Ward CBC AUTO DIFFon 06-12-2022 BASO # 0.2 103/ul Critically high 0.0-0.1 [facility] Comment on above: Performed By: #### L IPID, CMP #### [facility] [address] [place] [address] Dr. Juan Ward Basophils/100 WBC (Bld) 1.4 % Normal 0.2-2.0 [facility] Comment on above: Performed By: #### L IPID, CMP #### [facility] [address] [place] [address] Dr. Juan Ward EO # 0.2 103/ul Normal 0.0-0.7 [facility] Comment on above: Performed By: #### L IPID, CMP #### [facility] [address] [place] [address] Dr. Juan Ward Eosinophils/100 WBC (Bld) 2.1 % Normal 0.9-7.0 [facility] Comment on above: Performed By: #### L IPID, CMP #### [facility] [address] [place] [address] Dr. Juan Ward Erythrocyte distribution width (RBC) [Ratio] 13.8 % Normal 11.0-15.0 [facility] Comment on above: Performed By: #### L IPID, CMP #### [facility] [address] [place] [address] Dr. Juan Ward Hematocrit (Bld) [Volume fraction] 44.9 % Normal 42.0-54.0 [facility] Comment on above: Performed By: #### L IPID, CMP #### [facility] [address] [place] [address] Dr. Juan Ward Hemoglobin (Bld) [Mass/Vol] 15.0 g/dL Normal 14.0-18.0 [facility] Comment on above: Performed By: #### L IPID, CMP #### [facility] [address] [address] [address] Juan Ward IG # 0.05 10e3/ul Critically high 0.00-0.03 [facility] Comment on above: Performed By: #### L IPID, CMP #### [facility] [address] [address] [address] Juan Ward IG % 0.5 % Normal 0.0-0.5 [facility] Comment on above: Performed By: #### L IPID, CMP #### [facility] [address] [address] [address] Juan Ward LYMPH # 3.1 103/ul Normal 1.2-3.8 [facility] Comment on above: Performed By: #### L IPID, CMP #### [facility] [address] [address] [address] Juan Ward Lymphocytes/100 WBC (Bld) 29.6 % Normal 20.5-60.0 [facility] Comment on above: Performed By: #### L IPID, CMP #### [facility] [address] [place] [address] Dr. Juan Ward MANUAL DIFF REQ NO Normal [facility] Comment on above: Performed By: #### L IPID, CMP #### [facility] [address] [address] [address] Juan Ward MCH (RBC) [Entitic mass] 31.1 pg Normal 25.9-34.0 [facility] Comment on above: Performed By: #### L IPID, CMP #### [facility] [address] [address] [address] Juan Ward MCHC (RBC) [Mass/Vol] 33.4 g/dL Normal 29.9-35.2 [facility] Comment on above: Performed By: #### L IPID, CMP #### [facility] [address] [address] [address] Juan Ward MCV (RBC) [Entitic vol] 93.0 fL Normal 80.0-94.0 [facility] Comment on above: Performed By: #### L IPID, CMP #### [facility] [address] [place] [address] Dr. Juan Ward MONO # 0.9 103/ul Critically high 0.3-0.8 [facility] Comment on above: Performed By: #### L IPID, CMP #### [facility] [address] [place] [address] Dr. Juan Ward Monocytes/100 WBC (Bld) 8.8 % Normal 1.7-12.0 [facility] Comment on above: Performed By: #### L IPID, CMP #### [facility] [address] [place] [address] Dr. Juan Ward NEUT # 6.1 103/ul Normal 1.4-6.5 [facility] Comment on above: Performed By: #### L IPID, CMP #### [facility] [address] [place] [address] Dr. Juan Ward Neutrophils/100 WBC (Bld) 57.6 % Normal 43.0-75.0 [facility] Comment on above: Performed By: #### L IPID, CMP #### [facility] [address] [place] [address] Dr. Juan Ward Platelet mean volume (Bld) [Entitic vol] 9.1 fL Critically low 9.5-13.5 [facility] Comment on above: Performed By: #### L IPID, CMP #### [facility] [address] [place] [address] Dr. Juan Ward PLT 385 103/ul Normal 150-450 [facility] Comment on above: Performed By: #### L IPID, CMP #### [facility] [address] [place] [address] Dr. Juan Ward RBC 4.83 106/ul Normal 4.70-6.10 [facility] Comment on above: Performed By: #### L IPID, CMP #### [facility] [address] [place] [address] Dr. Juan Ward WBC 10.5 103/ul Normal 4.0-11.0 [facility] Comment on above: Performed By: #### L IPID, CMP #### [facility] [address] [place], [place] [address] ABD/PELV W CONon 06-12-20 CT ABD/PELV W CON CT ABDOMEN/PELVIS WITH IV CONTRAST. INDICATION: Abdominal pain. COMPARISON: There are no other studies available for comparison. TECHNIQUE: Contiguous axial images were obtained from the lung bases to the pelvic floor following the intravenous administration of contrast. Coronal and sagittal reformations are provided. Approximately 100 ml Omnipaque 350 was administered intravenously. FINDINGS: LOWER LUNGS: Clear. LIVER/BILIARY TREE: No mass. No intrahepatic ductal dilatation. GALLBLADDER: No significant gallbladder wall thickening. No radiopaque stone. CBD: Normal CBD. SPLEEN: Normal in size. PANCREAS: No acute findings. No peripancreatic fluid or inflammation. No pancreatic duct dilatation. No discrete mass. ADRENALS: Normal. KIDNEYS: No hydronephrosis. No radiopaque calculus. STOMACH AND BOWEL: There is a small hiatal hernia. No dilated bowel loops. No bowel wall thickening. Colonic diverticulosis APPENDIX: Normal appendix. PERITONEAL CAVITY: No fluid. No fat stranding. ABDOMINAL WALL: No subcutaneous stranding. No subcutaneous fluid collection. LYMPH NODES: No mesenteric or retroperitoneal lymphadenopathy by CT criteria. ABDOMINAL AORTA: No aneurysm. PELVIS: No acute abnormality. MUSCULOSKELETAL: No acute osseous abnormality. IMPRESSION: No acute abnormality in the abdomen or pelvis. Electronically authenticated by: SHERRON MOULTON Date: 2022-06-12 18:26 Normal [facility] LIPASEon 06-12-2022 Lipase [Catalytic activity/Vol] 103.0 U/L Normal 73.0-393.0 [facility] Comment on above: Performed By: #### A MY, LIPA #### [facility] [id number] Juan Ward PROF 14(COMP METB)on 022 Albumin [Mass/Vol] 3.8 g/dL Normal 3.4-5.0 [facility] Comment on above: Performed By: #### C MP #### [facility] [address] [place] [address] Dr. Juan Ward Albumin/Globulin [Mass ratio] 1.0 {ratio} Normal [facility] Comment on above: Performed By: #### C MP #### [facility] [address] [place] [address] Dr. Juan Ward ALP [Catalytic activity/Vol] 74 U/L Normal 46-116 [facility] Comment on above: Performed By: #### C MP #### [facility] [address] [place] [address] Dr. Juan Ward ALT [Catalytic activity/Vol] 17 U/L Normal 16-63 [facility] Comment on above: Performed By: #### C MP #### [facility] [address] [place] [address] Dr. Juan Ward Anion gap [Moles/Vol] 9.5 mmol/L Normal [facility] Comment on above: Performed By: #### C MP #### [facility] [address] [place] [address] Dr. Juan Ward AST [Catalytic activity/Vol] 12 U/L Critically low 15-37 [facility] Comment on above: Performed By: #### C MP #### [facility] [address] [place] [address] Dr. Juan Ward Bilirubin [Mass/Vol] 0.2 mg/dL Normal 0.2-1.0 [facility] Comment on above: Performed By: #### C MP #### [facility] [address] [place] [address] Dr. Juan Ward Calcium [Mass/Vol] 8.5 mg/dL Normal 8.5-10.1 [facility] Comment on above: Performed By: #### C MP #### [facility] [address] [place] [address] Dr. Juan Ward Chloride [Moles/Vol] 104 mmol/L Normal 98-107 [facility] Comment on above: Performed By: #### C MP #### [facility] [address] [place] [address] Dr. Juan Ward CO2 [Moles/Vol] 30.2 mmol/L Normal 21.0-32.0 [facility] Comment on above: Performed By: #### C MP #### [facility] [address] [place] [address] Dr. Juan Ward Creatinine [Mass/Vol] 0.87 mg/dL Normal 0.70-1.30 [facility] Comment on above: Performed By: #### C MP #### [facility] [address] [place] [address] Dr. Juan Ward EGFR-AF IVORIAN >60 Normal >=60 [facility] Comment on above: Performed By: #### C MP #### [facility] [address] [place] [address] Dr. Juan Ward EGFR-NON AF IVORIAN >60 Normal >=60 [facility] Comment on above: Performed By: #### C MP #### [facility] [address] [place] [address] Dr. Juan Ward Globulin (S) [Mass/Vol] 3.8 g/dL Normal [facility] Comment on above: Performed By: #### C MP #### [facility] [address] [place] [address] Dr. Juan Ward Glucose [Mass/Vol] 90 mg/dL Normal 74-106 [facility] Comment on above: Performed By: #### C MP #### [facility] [address] [place] [address] Dr. Juan Ward Potassium [Moles/Vol] 3.7 mmol/L Normal 3.5-5.1 [facility] Comment on above: Performed By: #### C MP #### [facility] [address] [place] [address] Dr. Juan Wadr Protein [Mass/Vol] 7.6 g/dL Normal 6.4-8.2 [facility] Comment on above: Performed By: #### C MP #### [facility] [address] [place] [address] Dr. Juan Ward Sodium [Moles/Vol] 140 mmol/L Normal 136-145 [facility] Comment on above: Performed By: #### C MP #### [facility] [address] [place], [place] [address] Dr. Juan Ward Urea nitrogen [Mass/Vol] 8.0 mg/dL Normal 7.0-18.0 [facility] Comment on above: Performed By: #### C MP #### [facility] [address] [place], [place] [address] Dr. Juan Ward Urea nitrogen/Creatinine [Mass ratio] 9.2 mg/mg Normal [facility] Comment on above: Performed By: #### C MP #### [facility] [address] [address] [address] Juan Ward Vital Signs Date Time Vital Sign Value Performing Clinician Facility 02-21-2023 12:51-0400 Body height 170.2 cm Mich Juares MD Work Phone: [facility] 02-21-2023 12:51-0400 Body temperature 98.2 [degF] Mich Juares MD Work Phone: [facility] 02-21-2023 12:51-0400 Body weight 81.65 kg Mich Juares MD Work Phone: [facility] 02-21-2023 12:51-0400 Diastolic blood pressure 89 mm[Hg] Mich Juares MD Work Phone: [facility] 02-21-2023 12:51-0400 Heart rate 70 /min Mich Juares MD Work Phone: [facility] 02-21-2023 12:51-0400 Systolic blood pressure 140 mm[Hg] Mich Juares MD Work Phone: [facility] 12-27-2022 11:17-0400 Diastolic blood pressure 84 mm[Hg] INSURANCE PROCESSING CLERK-BC [facility] Shammo Work Phone: [facility] 12-27-2022 11:17-0400 Heart rate 72 /min INSURANCE PROCESSING CLERK-BC [facility] Work Phone: [facility] 12-27-2022 11:17-0400 Respiratory rate 16 /min INSURANCE PROCESSING CLERK-BC [facility] Work Phone: [facility] 12-27-2022 11:17-0400 SaO2% (BldA) [Mass fraction] 96 % INSURANCE PROCESSING CLERK-BC [facility] Work Phone: [facility] 12-27-2022 11:17-0400 Systolic blood pressure 125 mm[Hg] INSURANCE PROCESSING CLERK-BC [facility] Work Phone: [facility] 12-27-2022 09:10-0400 Body height 170.18 cm INSURANCE PROCESSING CLERK-BC [facility] Work Phone: [facility] 12-27-2022 09:10-0400 Body temperature 98.4 [degF] INSURANCE PROCESSING CLERK-BC [facility] Work Phone: [facility] 12-27-2022 09:10-0400 Body weight 81.64 kg INSURANCE PROCESSING CLERK-[employer] [facility] Shammo Work Phone: [facility] 10-06-2022 11:15-0500 Body height 167.64 cm Mitch Rubio Other [employer] Other 10-06-2022 11:15-0500 Body mass index (BMI) [Ratio] 29.05 kg/m2 Mitch Rubio Other [employer] Other 10-06-2022 11:15-0500 Body weight 81.65 kg Mitch Rubio Other [employer] Other 10-06-2022 11:15-0500 Diastolic blood pressure 94 mm[Hg] Mitch Rubio Other [employer] Other 10-06-2022 11:15-0500 Systolic blood pressure 133 mm[Hg] Mitch Rubio Other [employer] Other Encounters Encounter Date Encounter Type Care Provider Facility Start: 02-21-2023 End: 02-21-2023 ambulatory MICH JUARES Facility:[facility] Start: 02-21-2023 End: 02-21-2023 Patient encounter procedure Mich Juares MD Work Phone: Colorectal Surgery Comment on above: Hemorrhoids, interna l (Primary Dx) Start: 12-27-2022 End: 12-27-2022 ambulatory Mitch Rubio Facility:[facility] Start: 12-27-2022 End: 12-27-2022 Admission to same day surgery center [facility] Kings Shammo Work Phone: [facility] Work Phone: Start: 12-27-2022 End: 12-27-2022 ambulatory [facility] Kings T Shammo Work Phone: [facility] Work Phone: Start: 10-12-2022 End: 10-13-2022 ambulatory [facility] Facility:[facility] Start: 10-12-2022 End: 10-12-2022 Patient encounter procedure [facility] Start: 10-06-2022 End: 10-06-2022 ambulatory Mitch Rubio Other [employer] Other Start: 10-06-2022 FQ visit new patient Mitch Rubio [facility] G[facility] Start: 09-28-2022 ambulatory KINGS SHAMMO Facility:[facility] Start: 09-27-2022 End: 09-28-2022 ambulatory KINGS SHAMMO Facility:[facility] Start: 07-15-2022 Encounter for genera l adult medical examination without abnormal findings KINGS SHAMMO [facility] Start: 07-12-2022 End: 07-13-2022 ambulatory KINGS SHAMMO Facility:[facility] Start: 07-11-2022 End: 07-12-2022 ambulatory KINGS SHAMMO Facility:[facility] Start: 07-11-2022 End: 07-12-2022 Encounter for general adult medical examination without abnormal findings KINGS CHAPA Facility:[facility] Start: 06-16-2022 ambulatory [facility] Facility:[facility] Start: 06-12-2022 End: 06-13-2022 ambulatory KINGS CHAPA Facility: Procedures Date Procedure Procedure Detail Performing Clinician Start: 12-27-2022 Screening colonoscopy F CUPOLA MELTING SUPERVISOR-BC [facility]neca Work Phone: Plan of Treatment Date Care Activity Detail Author Start: 03-30-2023 Influenza vaccination INFLUENZA (#1) [facility] Start: 12-27-2022 [facility] Start: 07-30-2022 DEPRESSION ASSESSMENT DEPRESSION ASSESSMENT [facility] Start: 05-04-2021 COVID-19 VACCINE (3 - Pfizer series) COVID-19 VACCINE (3 - Pfizer series) [facility] Start: 12-09-2019 SHINGRIX VACCINE (1 of 2) SHINGRIX VACCINE (1 of 2) [facility] Start: 2014 COLOGUARD (FIT-DNA) COLOGUARD (FIT-DNA) [facility] Start: 2014 Colonoscopy COLONOSCOPY [facility] Start: 2014 COLORECTAL CANCER SCREENING COLORECTAL CANCER SCREENING [facility] Start: [address] COLONOGRAPHY [facility] Start: 2014 DIABETES SCREEN DIABETES SCREEN [facility] Start: 2014 FECAL OCCULT BLOOD FECAL OCCULT BLOOD [facility] Start: 2014 SIGMOIDOSCOPY SIGMOIDOSCOPY [facility] Start: 2004 LIPID SCREEN LIPID SCREEN [facility] Start: 1988 Urine microalbumin profile DTAP,TDAP,TD (1 - Tdap) [facility] Start: 12-09-1987 HEPATITIS C SCREENING HEPATITIS C SCREENING [facility] Start: 12-09-1987 HIV SCREENING HIV SCREENING [facility] Start: 12-09-1975 PNEUMOCOCCAL (1 - PCV) PNEUMOCOCCAL (1 - PCV) [facility] Start: 1969 HEPATITIS B (1 of 3 - 3-dose series) HEPATITIS B (1 of 3 - 3-dose series) [facility] Patient Education Colon polyps H emorrhoids (DC) [facility] Work Phone: Immunizations Immunization Date Immunization Notes Care Provider Fa cility 03-09-2021 SARS-CoV-2 (COVID-19 ) mRNA BNT-162b2 vax Mer[facility] 02-16-2021 SARS-CoV-2 (COVID-19 ) mRNA BNT-162b2 vax [employer] SALAM [facility] Payers Date Payer Category Payer Self-pay 2021 Private Health [facility] Latif Mangatar Flaviar [id number] 2021-Present [phone] [address] [place] [phone] PPO [id number] 1969 Unknown [id number] 1969 Unknown [id number] 1969 Unknown [id number] 1969 Unknown [id number] 1969 Unknown [id number] 1969 Unknown [id number] 1959 Unknown [id number] Unknown [id number] Social History Date Type Detail Facility Tobacco smoking status [facility] Start: 02-21-2023 Sex Assigned At Male F [facility] Start: 12-27-2022 [facility] Start: 1970 Sex Assigned At Male F [facility] Start: 02-21-2023 Tobacco smoking stat us NHIS Smokes tobacco daily [facility] History of tobacco use Cigarette Smoker [facility] Start: 02-21-2023 Tobacco use and exposure Former smokeless tobacco user [facility] Start: 02-21-2023 History of Social function [facility] National Score (1-100), lower number is lower risk 52 [facility] Start: 1970 Sex Assigned At Not on file C [facility] Goals Date Patient Goal Desired Activity /State Clinical Notes 10-06-2022 to 02-21-2023 Mich Juares MD - 02/21/2023 1:00 PM Mira Young Ma - 02/21/2023 12:55 PM EDMira Cheung Ma - 02/21/2023 12:52 PM EDT Note Date & Type Note Facility 02-21-2023 Note HNO ID: [id number] Author: Mich Juares MD Service: ? Author Type: Physician Type: Progress Notes Filed: 02/21/2023 1:26 PM Note Text: COLORECTAL SURGERY February 21, 2023 Dat Sotelo 52 year old This consult was requested by Dr. Mitch Rubio and my final recommendations will be communicated to the requesting health care provider by way of the shared medical record for internal providers or letter via the [employer] for external providers. Chief Complaint: rectal prolapse, hemorrhoids History of Present Illness: Dat Sotelo is a 52 year old male presents today for evaluation of rectal prolapse, hemorrhoids. Colonoscopy 12/27/22 - Dr. Rubio - Transverse colon: 8 mm sessile polyp removed with cold snare - Internal hemorrhoids Scan on 01/01/2023 3:26 PM by Callum Chaves: [facility] Colonosocopy and Pathology Report Pathology Colon, transverse, polyp, polypectomy: - Tubular adenoma Scan on 02/20/2023 2:50 PM by Keya Desai: PATHOLOGY REPORT 52-year-old male with the above-stated history. He reports he has been having prolapsing internal hemorrhoids for some time and it seems that they come out and bleed with bowel movements. His bowel moods are typically soft but can be irregular No past medical history on file. No past surgical history on file. No current outpatient medications on file. No current facility-administered medications for this visit. ALLERGIES Not on File No family history on file. Physical Exam: BP 140/89 Pulse 70 Temp 36.8 ?C (98.2 ?F) (Temporal) Ht 170.2 cm (5' 7 ) Wt 81.6 kg (180 lb) BMI 28.19 kg/m? General Appearance: Well appearing, alert, in no acute distress, well-hydrated, well nourished. Anorectal: External exam reveals no lesions. Digital rectal exam reveals no gross blood or masses Safety Counselor present: Yes, Zainab Z Anoscopy: The patient was placed in chest-knee position. After digital exam with a lubricated finger, the scope was easily inserted. Severely enlarge right posterior, right anterior, and left lateral internal hemorrhoids were noted. Otherwise normal mucosa was noted. Anoscopy completed. Preoperative diagnosis: First to second degree hemorrhoids. Procedure: Anoscopy, rubber band ligation of hemorrhoids. Postoperative diagnosis: Same Indications: This 52 year old was found to have internal hemorrhoids that were not suitable for conservative management. Description of procedure: The patient was placed in the chest-knee position. A time out was completed. A digital rectal exam was performed. A lubricated anoscope was inserted into the anal canal. The three hemorrhoidal pedicles were identified and the redundant rectal mucosa just above the largest internal hemorrhoids (left lateral/right anterior/right posterior) suctioned. Using the applicator, 2 rubber bands were placed around the tissue and were noted to be in good position. The mucosa was inspected for bleeding prior to withdrawal of the anoscope. The patient tolerated the procedure well with no excessive pain. Assessment Assessment and Plan: Dat Sotelo is a 52 year old male with severely enlarged internal hemorrhoids status post rubber band ligation of left lateral, right anterior, and right posterior internal hemorrhoids. He tolerated procedure well. We talked about psyllium fiber supplementation as well as increasing water intake. We talked a good stool hygiene. His hemorrhoids are quite large and we will see if were able to make a dent in his symptoms with the banding. If things have not improved he will return to see me in 1 to 2 months. At that time we can discuss repeat banding versus more likely THD Medical Decision Making: Data Reviewed: Tests AND Documents Reviewed/ordered: Review of prior notes from Dr. Rubio Review of Pathology Review of Procedures / Tests: Colonoscopy Risk of morbidity, mortality and/or complications of treatment plan: danna Juares MD Colorectal Surgery [facility] 02-21-2023 History of Present illness Narrative COLORECTAL SURGERY February 21, 2023 Dat Sotelo 52 year old This consult was requested by Dr. Mitch Rubio and my final recommendations will be communicated to the requesting health care provider by way of the shared medical record for internal providers or letter via the [employer] for external providers. Chief Complaint: rectal prolapse, hemorrhoids History of Present Illness: Dat Sotelo is a 52 year old male presents today for evaluation of rectal prolapse, hemorrhoids. Colonoscopy 12/27/22 - Dr. Rubio - Transverse colon: 8 mm sessile polyp removed with cold snare - Internal hemorrhoids Scan on 01/01/2023 3:26 PM by Callum Chaves: [facility] Colonosocopy and Pathology Report Pathology Colon, transverse, polyp, polypectomy: - Tubular adenoma Scan on 02/20/2023 2:50 PM by Keya Desai: PATHOLOGY REPORT 52-year-old male with the above-stated history. He reports he has been having prolapsing internal hemorrhoids for some time and it seems that they come out and bleed with bowel movements. His bowel moods are typically soft but can be irregular No past medical history on file. No past surgical history on file. No current outpatient medications on file. No current facility-administered medications for this visit. ALLERGIES Not on File No family history on file. Physical Exam: BP 140/89 Pulse 70 Temp 36.8 C (98.2 F) (Temporal) Ht 170.2 cm (5' 7 ) Wt 81.6 kg (180 lb) BMI 28.19 kg/m General Appearance: Well appearing, alert, in no acute distress, well-hydrated, well nourished. Anorectal: External exam reveals no lesions. Digital rectal exam reveals no gross blood or masses Safety Counselor present: Yes, Zainab Z Anoscopy: The patient was placed in chest-knee position. After digital exam with a lubricated finger, the scope was easily inserted. Severely enlarge right posterior, right anterior, and left lateral internal hemorrhoids were noted. Otherwise normal mucosa was noted. Anoscopy completed. Preoperative diagnosis: First to second degree hemorrhoids. Procedure: Anoscopy, rubber band ligation of hemorrhoids. Postoperative diagnosis: Same Indications: This 52 year old was found to have internal hemorrhoids that were not suitable for conservative management. Description of procedure: The patient was placed in the chest-knee position. A time out was completed. A digital rectal exam was performed. A lubricated anoscope was inserted into the anal canal. The three hemorrhoidal pedicles were identified and the redundant rectal mucosa just above the largest internal hemorrhoids (left lateral/right anterior/right posterior) suctioned. Using the applicator, 2 rubber bands were placed around the tissue and were noted to be in good position. The mucosa was inspected for bleeding prior to withdrawal of the anoscope. The patient tolerated the procedure well with no excessive pain. Assessment Assessment and Plan: Dat Sotelo is a 52 year old male with severely enlarged internal hemorrhoids status post rubber band ligation of left lateral, right anterior, and right posterior internal hemorrhoids. He tolerated procedure well. We talked about psyllium fiber supplementation as well as increasing water intake. We talked a good stool hygiene. His hemorrhoids are quite large and we will see if were able to make a dent in his symptoms with the banding. If things have not improved he will return to see me in 1 to 2 months. At that time we can discuss repeat banding versus more likely THD Medical Decision Making: Data Reviewed: Tests & Documents Reviewed/ordered: Review of prior notes from Dr. Rubio Review of Pathology Review of Procedures / Tests: Colonoscopy Risk of morbidity, mortality and/or complications of treatment plan: moderate Mich Juares MD Colorectal Surgery documented in this encounter [facility] 02-21-2023 Nurse Note What is the reason for your visit today? consult Who is your referring physician? Dr. Juares Are you having poor oral intake? NO Have you had unintentional weight loss of 15 lbs/7 Kg in the last 3-6 months? NO Bowels: regular Wound: clean & dry Temperature: No Drains: No . documented in this encounter [facility] 12-27-2022 Procedure note [facility] 10-06-2022 Evaluation note Encounter Date Diagnosis Assessment Notes Sep, Colon cancer screening (ICD-10 - Z12.11) [employer] Other Evaluation + Plan note No data available for this section [facility] Evaluation noteNo assessment information available [facility] Work Phone: Evaluation note* Diagnosis Hemorrhoids, internal- Primary Internal hemorrhoids without mention of complication [facility] Author Mitch Rubio [facility] December 27, 2022 10:30am Note Date/Time December 27, 2022 10:30 am [facility] [address] [place] [address] Gastroenterology H&P Signed Patient: Brad Sotelo MR#: [id number] : 1970 Acct:[id number] Age/Sex: 52 / M Adm Date: 3 Loc: Room: Type: [facility] Attending Dr: Mitch Rubio MD Copies to: MD Kings Martinez, [facility]~ Date of Service: 12/27/2022 HISTORY & PHYSICAL: Patient's history with special attention to the cardiovascular, pulmonary systems and the current problem was reviewed with the patient immediately prior to the procedure. Present medications and doses reviewed in the EMR. Allergies and pertinent laboratory tests were also reviewedat this time in the EMR. The physical examination, as below, was then performed. Indication, assessment and HPI: 52-year-old male presents for average risk screening colonoscopy Family history of GI malignancy? No PHYSICAL EXAMINATION Mouth and Pharynx : Moist mucus membranes, normal dentition Cardiac: Regular rate, regular rhythm Pulmonary: Clear to auscultation bilaterally, no wheezing Neurological: Alert and oriented x3, no focal deficits noted Abdomen: Abdomen soft, non-tender REVIEW OF SYSTEMS Constitutional: Denies malaise, fevers Cardiovascular: Denies chest pain, palpitations Respiratory: Denies shortness of breath, wheezing Gastrointestinal: Per HPI Genitourinary: Denies dysuria, polyuria Musculoskeletal: Denies joint swelling, joint stiffness Neurological: Denies numbness, tingling Integumentary: Denies rashes, skin lesions Endocrine: Denies fatigue, weight loss Written informed consent obtained from the patient. Risks (including but not limited to perforation, infection, bloating, bleeding, need for emergent surgeryand loss of life), benefits and alternatives explained and questions answered. The patient verbalized understanding. Based on history patient is an appropriate candidate for the procedure. Mitch Rubio MD Documented By: Mitch Rubio MD 12/27/22 1029 Signed By: <Electronically signed by Mitch Rubio MD> 12/27/22 1030 [facility] Work Phone: History general Narrative - Reported* Type Description Date Medical History hypertension [employer] Other Hospital Discharge instructions No data available for this section [facility] Hospital Discharge instructions Additional Instructions DISCHARGE INSTRUCTIONS FOR COLONOSCOPY WHAT TO EXPECT: - You may feel full, gassy or cramping after your procedure. In some cases, this may be from a few hours to a day. Walking may help relieve the discomfort. - If you have polyp(s) removed you may note some minor bloody discharge after your first bowel movements. - You should begin to recover from anesthesia within 1 hour of the procedure, however may feel groggy for the next 24 hours. DO's AND DON'Ts: - Call your doctor right away if you have a hard abdomen, severe pain, are passing lots of bright red blood or clots. - Call your doctor if you develop any rashes, hives or difficulty breathing. - Let your doctor know if you have not had a bowel movement by 3 days after your procedure. - If you take 81 mg aspirin for your heart it is safe to resume this medication. - If you take other blood thinner medications your doctor will instruct you when these can safely be resumed. - Do NOT drive for 24 hours. - Do NOT operate machinery such as power tools, lawn mowers, snow blowers, sewing machines, etc. for 24 hours. - Avoid alcoholic beverages and drugs for allergies, nerves, or sleep. - Do NOT stay alone. Do NOT leave your child unattended. - Do NOT make important personal or business decisions or sign any legal documents. - Eat solid foods and drink liquids in smaller amounts than usual until normal appetite returns. If you should experience an upset stomach, liquids high in sugar content (soda, Brice-Aid, non-acid juices) are recommended. - You can resume normal activities tomorrow. FOLLOW UP & RECOMMENDATIONS: -Dr. Rubio's office will give you referral to colorectal surgery -Follow-up with the GI office as needed -Notify the doctor if you have any problems. -Repeat colonoscopy in 5 years. -Follow up with PCP. -Office number [phone].[facility] Work Phone: Progress note No data available for this section [facility] Reason for visit NarrativePatient here at the request of Kings Chapa for evaluation & treatment of left sided abdominal pain. Pt states symptoms have subsided, CT & labs obtained from [facility] Other Summary Purpose Family History No Family History Records FoundNo Family History Records FoundNo Family History Records FoundNo Family History Records Found Advance Directives No Advanced Directives Records Found Advance Directive Response Recorded Date/ Time Advance Directives No December 22 11:52am Chief Complaint and Reason for Visit Chief Complaint Screening Additional Source Comments (unrecognized sect ion and content) No Status Records FoundNo Status Records FoundNo Status Records FoundNo Status Records Found INFORMATION SOURCE (unrecogn ized section and content) DATE CREATED AUTHOR 10/03/2022 [facility] DATE CREATED AUTHOR AUTHOR'S ORGANIZ ATION 10/14/2022 [facility] DATE CREATED AUTHOR AUTHOR'S ORGANIZ ATION 01/08/2023 [facility] DATE CREATED AUTHOR AUTHOR'S ORGANIZ ATION 03/17/2023 [facility] Care Teams (unrecognized sec tion and content) Team Status: Active Member Role Status Dates Kigns Chapa [facility] Primary Care Provider Active Team Status: Inactive Member Role Status Dates Mitch Rubio MD Attending Provider Active Kings Chapa [facility] Primary Care Provider Active Source Comments (unrecognize d section and content) In the event this informatio n is protected by the [facility] Confidentiality of Alcohol and Drug Abuse Patient Records regulations: The Federal rules restrict any use of the information to criminally investigate or prosecute any alcohol or drug abuse patient.[facility] Reason for Visit (unrecogniz ed section and content) Reason Comments Consult New Patient FOR RECORDS PERTAINING TO PATIENTS WHO ARE OR HAVE BEEN ENROLLED IN A CHEMICAL DEPENDENCY/SUBSTANCEABUSE PROGRAM, SOME INFORMATION MAY BE OMITTED. This clinical summary was aggregated from multiple sources. Caution should be exercised in using it in the provision of clinical care. This summary normalizes information from multiple sources, and as a consequence, information in this document may materially change the coding, format and clinical context of patient data. In addition, data may be omitted in some cases. CLINICAL DECISIONS SHOULD BE BASED ON THE PRIMARY CLINICAL RECORDS. [email or web address] [facility]. provides no warranty or guarantee of the accuracy or completeness of information in this document.
== END 2025-01-08 08:39 | disposition home or self-care (01) ==
LOC: CT 08:38
PROVIDERS: PCP Nurse Practitioner
DX: F17.210 Nicotine dependence, cigarettes, uncomplicated (principal); R91.8 Other nonspecific abnormal finding of lung field
CPT/HCPCS: 71271